=== PATIENT | male | born 1975 | race Two or more races ===

== ENCOUNTER 2017-01-05 12:17 | Emergency (ER) | payer SELFPAY ==
[2017-01-05] MEDS ORDERED: Ondansetron 4 MG/2 ML SDV IVPUSH ONE (12:51)
[2017-01-05] MEDS ORDERED: Ketorolac 30 MG/ML SDV IVPUSH ONE (12:51)
[2017-01-05] MEDS ORDERED: Morphine 2 MG/ML Syringe IVPUSH ONE (12:51)
[2017-01-05] MEDS ORDERED: Sodium Chloride 0.9% 1,000 ML IV ONE (12:51)
--- NOTE | 2017-01-05 13:09 | EDM.PDOC ---
ED HPI GI/ABDOMINAL - General Chief Complaint: Abdominal Pain Stated Complaint: STOMACH PAINS Time Seen by Provider: 01/05/17 12:58 Source of Information: Reports: Patient History Limitations: Reports: Language barrier - History of Present Illness INITIAL COMMENTS - FREE TEXT/NARRATIVE: History of present illness: [41-year-old male presenting with acute abdominal pain. Has a history of cholelithiasis and had planned to have surgery indicates the pain is increasingly worse despite opiate analgesia. Indicates that when he was evaluated previously they indicated the stones were concerning for obstruction.] Review of systems: As per history of present illness and below otherwise all systems reviewed and negative. Past medical history: As per history of present illness and as reviewed below otherwise noncontributory. Surgical history: As per history of present illness and as reviewed below otherwise noncontributory. Social history: No reported history of drug or alcohol abuse. Family history: As per history of present illness and as reviewed below otherwise noncontributory. Physical exam: HEENT: Atraumatic, normocephalic, pupils reactive, negative for conjunctival pallor or scleral icterus, mucous membranes moist, throat clear, neck supple, nontender, trachea midline. Lungs: Clear to auscultation, breath sounds equal bilaterally, chest nontender. Heart: S1S2, regular, negative for clicks, rubs, or JVD. Abdomen: Soft, nondistended, exquisite tenderness is specifically noted in her right upper quadrant. Negative for masses or hepatosplenomegaly. Negative for costovertebral tenderness. Pelvis: Stable nontender. Genitourinary: Deferred. Rectal: Deferred. Extremities: Atraumatic, negative for cords or calf pain. Neurovascular unremarkable. Neuro: Awake, alert, oriented. Cranial nerves II through XII unremarkable. Cerebellum unremarkable. Motor and sensory unremarkable throughout. Exam nonfocal. Ultrasound reflects presence of numerous gallstones without signs of obstruction. This was consistent with exam done at outside hospital so no significant change noted. Patient indicates pain did increase significantly after eating. Spoke with Dr. Soni in regards to patient's ultrasound results and his labs Dr. Soni indicated that continue with the conservative plan of following up on Saturday would be sufficient. Diagnostics: [BC, CMP, CT of abdomen with contrast] Therapeutics: [IV fluid, Zofran, Toradol, morphine] Impression: [Cholecystitis with cholelithiasis] Plan: [Refer to surgery] Definitive disposition and diagnosis as appropriate pending reevaluation and review of above. - Related Data Allergies/ADRs: Allergies Allergy/AdvReac Type Severity Reaction Status Date / Time No Known Allergies Allergy Verified 01/05/17 12:52 Home Meds: Home Meds traMADol Hcl/Acetaminophen [Ultracet Tablet] 37.5 mg PO Q4HR 01/05/17 [History] Past Medical History - Past Health History Medical/Surgical History: Denies Medical/Surgical History Social & Family History - Tobacco Use Smoking Status *Q: Never Smoker Second Hand Smoke Exposure: No - Caffeine Use Caffeine Use: Reports: Coffee - Alcohol Use Days Per Week of Alcohol Use: 1 Number of Drinks Per Day: 2 Total Drinks Per Week: 2 - Recreational Drug Use Recreational Drug Use: No ED ROS GENERAL - Review of Systems Review Of Systems: See Below (History of present illness) ED EXAM, GI/ABD - Physical Exam Exam: See Below (See history of present illness) Course - Vital Signs Last Recorded V/S: Last Vital Signs Temp 36.1 C 01/05/17 12:50 Pulse 87 01/05/17 12:50 Resp 18 01/05/17 12:50 BP 123/68 01/05/17 12:50 Pulse Ox 98 01/05/17 12:50 - Orders/Labs/Meds Orders: Active Orders 24 hr Category Date Time Status Gallbladder [Abdomen Ltd] [US] Stat Exams 01/05/17 13:14 Ordered Labs: Laboratory Tests 01/05/17 01/05/17 Range/Units 13:08 13:08 WBC 9.85 (4.0-11.0) K/uL RBC 6.72 H (4.50-5.90) M/uL Hgb 13.0 (13.0-17.0) g/dL Hct 42.6 (38.0-50.0) % MCV 63.4 L (80.0-98.0) fL MCH 19.3 L (27.0-32.0) pg MCHC 30.5 L (31.0-37.0) g/dL RDW Std Deviation 41.0 (28.0-62.0) fl RDW Coeff of Popeye 19 H (11.0-15.0) % Plt Count 209 (150-400) K/uL Neut % (Auto) 78.4 (48.0-80.0) % Lymph % (Auto) 14.3 L (16.0-40.0) % [place] % (Auto) 6.4 (0.0-15.0) % Eos % (Auto) 0.6 (0.0-7.0) % Baso % (Auto) 0.3 (0.0-1.5) % Neut # (Auto) 7.7 H (1.4-5.7) K/uL Lymph # (Auto) 1.4 (0.6-2.4) K/uL [place] # (Auto) 0.6 (0.0-0.8) K/uL Eos # (Auto) 0.1 (0.0-0.7) K/uL Baso # (Auto) 0.0 (0.0-0.1) K/uL Nucleated RBC % 0.0 /100WBC Nucleated RBCs # 0 K/uL Sodium 139 (136-146) mmol/L Potassium 3.6 (3.5-5.1) mmol/L Chloride 109 (98-110) mmol/L Carbon Dioxide 21 (21-31) mmol/L BUN 13 (6.0-23.0) mg/dL Creatinine 0.8 (0.6-1.5) mg/dL Est Cr Clr Drug Dosing 109.66 mL/min Estimated GFR (MDRD) > 60.0 ml/min Glucose 108 (60-110) mg/dL Calcium 8.9 (8.8-10.8) mg/dL Total Bilirubin 0.9 (0.1-1.5) mg/dL AST 23 (5-40) IU/L ALT 31 (8-54) IU/L Alkaline Phosphatase 99 (40-150) Total Protein 7.3 (6.0-8.0) g/dL Albumin 4.3 (3.5-5.0) g/dL Globulin 3.0 (2.0-3.5) g/dL Albumin/Globulin Ratio 1.4 (1.3-2.8) Meds: Medications Discontinued Medications Generic Name Dose Route Start Last Admin Trade Name Freq PRN Reason Stop Dose Admin Sodium Chloride 1,000 mls @ 999 mls/hr 01/05/17 12:51 01/05/17 13:11 Normal Saline IV 01/05/17 13:51 999 mls/hr STAT ONE Administration Ketorolac Tromethamine 30 mg 01/05/17 12:51 01/05/17 13:36 Toradol IVPUSH 01/05/17 12:52 30 mg ONETIME ONE Administration Morphine Sulfate 2 mg 01/05/17 12:51 01/05/17 13:38 Morphine IVPUSH 01/05/17 12:52 2 mg ONETIME ONE Administration Ondansetron HCl 8 mg 01/05/17 12:51 01/05/17 13:34 Zofran IVPUSH 01/05/17 12:52 8 mg ONETIME ONE Administration Departure - Departure Time of Disposition: 14:55 Disposition: Home, Self-Care 01 Condition: good Clinical Impression: Cholecystitis Cholelithiasis Qualifiers: Cholelithiasis location: gallbladder Cholecystitis presence: with cholecystitis Cholecystitis acuity: acute Biliary obstruction: without biliary obstruction Qualified Code(s): K80.00 - Calculus of gallbladder with acute cholecystitis without obstruction Forms: ED Department Discharge Additional Instructions: The following information is given to patients seen in the emergency department who are being discharged to home. This information is to outline your options for follow-up care. We provide all patients seen in our emergency department with a follow-up referral. The need for follow-up, as well as the timing and circumstances, are variable depending upon the specifics of your emergency department visit. If you don't have a primary care physician on staff, we will provide you with a referral. We always advise you to contact your personal physician following an emergency department visit to inform them of the circumstance of the visit and for follow-up with them and/or the need for any referrals to a consulting specialist. The emergency department will also refer you to a specialist when appropriate. This referral assures that you have the opportunity for follow-up care with a specialist. All of these measure are taken in an effort to provide you with optimal care, which includes your follow-up. Under all circumstances we always encourage you to contact your private physician who remains a resource for coordinating your care. When calling for follow-up care, please make the office aware that this follow-up is from your recent emergency room visit. If for any reason you are refused follow-up, please contact the [facility] Emergency Department at and asked to speak to the emergency department charge nurse. Decrease all fatty foods including all port from your diet Take medication as directed If necessary go to a clear liquid diet until seen and evaluated by a surgeon Followup Saturday with surgery Return to ED as needed as discussed [facility] Specialty Care - General Surgery Professional Building [address] [place] [address], [address] [place] [address] - My Orders Last 24 Hours: My Active Orders 01/05/17 13:14 Gallbladder [Abdomen Ltd] [US] Stat - Assessment/Plan Last 24 Hours: My Active Orders 01/05/17 13:14 Gallbladder [Abdomen Ltd] [US] Stat
[2017-01-05 13:42] LABS: CHLORIDE,CL 109 mmol/L (98-110); SODIUM,NA 139 mmol/L (136-146)
[2017-01-05 15:05] VITALS: BP 121/71
--- NOTE | 2017-01-07 10:42 | US ---
EXAM DATE: 01/05/17 PATIENT'S AGE: 41 Patient: FIDEL MENDOZA Facility: [place], [place] Site . Site : [id number] Study: US Abdomen [id number]/15/2017 2:18:29 PM Ordering Physician: Doctor Philip Final Report: INDICATION: Right upper quadrant pain. TECHNIQUE: Conventional two-dimensional grayscale ultrasound of the right upper quadrant. COMPARISON: None. FINDINGS: Stones are demonstrated in the gallbladder. Mild gallbladder wall thickening is noted along with some pericholecystic fluid. The patient is reportedly tender over the gallbladder. No biliary ductal dilation is evident. The common bile duct measures 3 mm. The liver is normal in size, shape and echogenicity. The pancreas is obscured by gas. The right kidney is unremarkable. The visualized portion of the abdominal aorta and inferior vena cava are negative. IMPRESSION: 1. Cholelithiasis and evidence of acute cholecystitis. 2. Pancreas obscured by gas. Dictated by Tate Sanchez MD @ Jan 05 2017 2:34PM (Electronic Signature) Report Signed by Proxy and Original Signed Document filed in the Medical Record. SANDOR
== END 2017-01-05 15:32 | disposition home or self-care (01) ==
LOC: MW.ED 12:17
DX: K80.00 Calculus of gallbladder with acute cholecystitis without obstruction (principal)
CPT/HCPCS: 36415; 76705; 80053; 85025; 96361; 96374; 96375; 99284; J1885; J2270; J2405; J7040

== ENCOUNTER 2017-01-21 07:48 | Day surgery (SDC) | payer SELFPAY ==
[~2017-01-21 07:48] MED LIST: Bupivacaine 0.5% 10 ML SDV ONE; Lactated Ringers 1,000 ML IV SCH; ceFAZolin 1 GM Vial ONE; cefOXitin 2 GM in Premix Bag 1 BAG IV ONE
[2017-01-21] MEDS ORDERED: Midazolam 1 MG/ML 2 ML SDV ONE (08:38)
[2017-01-21] MEDS ORDERED: Succinylcholine/Normal Saline 200 MG/10 ML Syringe ONE (08:38)
[2017-01-21] MEDS ORDERED: Lidocaine 2% 5 ML SDV ONE (08:38)
[2017-01-21] MEDS ORDERED: fentaNYL 100 MCG/2 ML SDV ONE ×2 (08:38→11:56)
[2017-01-21] MEDS ORDERED: Propofol 200 MG/20 ML SDV ONE (08:38)
[2017-01-21] MEDS ORDERED: Rocuronium 10 MG/ML 10 ML Syringe ONE (08:38)
[2017-01-21] MEDS ORDERED: Scopolamine 1.5 MG Transdermal Patch TRDERM PRN (09:30)
--- NOTE | 2017-01-21 09:32 | PCM.PREANE ---
Preanesthetic Assessment - Anesthesia/Transfusion/Family Hx Anesthesia History: No Prior Anesthesia Family History of Anesthesia Reaction: No Transfusion History: No Prior Transfusion(s) - Review of Systems General: No Symptoms Pulmonary: No Symptoms Cardiovascular: No Symptoms Gastrointestinal: Abdominal pain Neurological: No Symptoms Other: Reports: None - Physical Assessment O2 Sat by Pulse Oximetry: 99 Respiratory Rate: 16 Vital Signs: Last Vital Signs Temp 36.7 C 01/21/17 08:12 Pulse 65 01/21/17 08:12 Resp 16 01/21/17 08:12 BP 128/78 01/21/17 08:12 Pulse Ox 99 01/21/17 08:12 Height: 1.68 m Weight: 86.636 kg ASA Class: 2 Mental Status: Alert & Oriented x3 Airway Class: Mallampati = 2 Dentition: Reports: Normal Dentition Thyro-Mental Finger Breadths: 3 Mouth Opening Finger Breadths: 3 ROM/Head Extension: Full Lungs: Clear to auscultation, Normal respiratory effort Cardiovascular: Regular Rate, Regular Rhythm - Allergies Allergies/Adverse Reactions: Allergies Allergy/AdvReac Type Severity Reaction Status Date / Time No Known Allergies Allergy Verified 01/05/17 12:52 - Blood Blood Available: No - Anesthesia Plan Pre-Op Medication Ordered: None - Acknowledgements Anesthesia Type Planned: General Anesthesia Pt an Appropriate Candidate for the Planned Anesthesia: Yes Alternatives and Risks of Anesthesia Discussed w Pt/Guardian: Yes Pt/Guardian Understands and Agrees with Anesthesia Plan: Yes PreAnesthesia Questionnaire - Past Health History Medical/Surgical History: Denies Medical/Surgical History Gastrointestinal History: Reports: Cholelithiasis Endocrine/Metabolic History: Reports: Obesity/BMI 30+ - Past Surgical History Head Surgeries/Procedures: Reports: None - SUBSTANCE USE Smoking Status *Q: Current Some Day Smoker Tobacco Use Within Last Twelve Months: Cigarettes Second Hand Smoke Exposure: No Days Per Week of Alcohol Use: 1 Number of Drinks Per Day: 2 Total Drinks Per Week: 2 Recreational Drug Use History: No - HOME MEDS Home Medications: Home Meds traMADol Hcl/Acetaminophen [Ultracet Tablet] 37.5 mg PO Q4HR PRN 01/05/17 [ History] - CURRENT (IN HOUSE) MEDS Current Meds: Current Medications Lactated Ringer's (Ringers, Lactated) 1,000 mls @ 125 mls/hr IV ASDIRECTED SAHIL Scopolamine (Transderm-Scop) 1.5 mg TRDERM Q72H PRN PRN Reason: Nausea Discontinued Medications Bupivacaine HCl (Sensorcaine-Mpf 0.5%) Confirm Administered Dose 30 ml .ROUTE .STK-MED ONE Stop: 01/21/17 06:59 Cefazolin Sodium (Ancef) Confirm Administered Dose 1 gm .ROUTE .STK-MED ONE Stop: 01/21/17 06:59 Fentanyl (Sublimaze) Confirm Administered Dose 100 mcg .ROUTE .STK-MED ONE Stop: 01/21/17 08:39 Cefoxitin Sodium 2 gm/ Premix 50 mls @ 100 mls/hr IV ONETIME ONE Stop: 01/21/17 06:29 Lidocaine (Xylocaine-Mpf 2%) Confirm Administered Dose 5 ml .ROUTE .STK-MED ONE Stop: 01/21/17 08:39 Midazolam HCl (Versed 1 Mg/Ml) Confirm Administered Dose 2 mg .ROUTE .STK-MED ONE Stop: 01/21/17 08:39 Propofol (Diprivan 20 Ml) Confirm Administered Dose 200 mg .ROUTE .STK-MED ONE Stop: 01/21/17 08:39 Rocuronium Davis (Zemuron) Confirm Administered Dose 100 mg .ROUTE .STK-MED ONE Stop: 01/21/17 08:39 Succinylcholine Chloride (Succinylcholine In Ns Pf) Confirm Administered Dose 200 mg .ROUTE .STK-MED ONE Stop: 01/21/17 08:39
[2017-01-21] MEDS ORDERED: HYDROmorphone 2 MG/ML Syringe ONE (11:08)
[2017-01-21] MEDS ORDERED: ePHEDrine 50 MG/ML SDV ONE (11:26)
[2017-01-21] MEDS ORDERED: fentaNYL 100 MCG/2 ML SDV IVPUSH PRN (11:45)
[2017-01-21] MEDS ORDERED: Ketorolac 30 MG/ML SDV ONE (11:48)
[2017-01-21] MEDS ORDERED: Ondansetron 4 MG/2 ML SDV ONE (11:48)
[2017-01-21] MEDS ORDERED: Neostigmine Methylsulfate 1 MG/ML 5 ML Syringe ONE (11:48)
[2017-01-21] MEDS ORDERED: Acetaminophen/HYDROcodone 325-5 MG Tab PO PRN (12:09)
[2017-01-21] MEDS ORDERED: Morphine 10 MG/ML Syringe IVPUSH PRN (12:09)
[2017-01-21] MEDS ORDERED: Ondansetron 4 MG/2 ML SDV IVPUSH PRN (12:09)
--- NOTE | 2017-01-21 12:12 | PCM.OPNOTE ---
- General Post-Op/Procedure Note Date of Surgery/Procedure: 01/21/17 Operative Procedure(s): Laparoscopic cholecystectomy Pre Op Diagnosis: Symptomatic cholelithiasis Post-Op Diagnosis: Same Anesthesia Technique: General ET tube (ASA II) Primary Surgeon: Celestino Soni Fluid Replacement, Intraop: 1,900 Output, Urine Amount: 350 EBL in mLs: 10 Condition: Good Free Text/Narrative:: Dictation [id number]
[2017-01-21] MEDS ORDERED: Lactated Ringers 1,000 ML IV SCH (12:15)
--- NOTE | 2017-01-21 12:53 | PCM.POSTAN ---
POST ANESTHESIA ASSESSMENT - MENTAL STATUS Mental Status: alert - RESPIRATORY Respiratory Status: respiratory rate WNL, airway patent, O2 saturation stable - CARDIOVASCULAR CV Status: pulse rate WNL, blood pressure stable - GASTROINTESTINAL GI Status: no symptoms - PAIN Pain Score: 0 - POST OP HYDRATION Hydration Status: adequate & stable - OBSERVATIONS Free Text/Narrative:: no anesthesia problems
--- NOTE | 2017-01-21 14:29 | PCM48HPAN ---
Post Anesthesia Note - EVALUATION WITHIN 48HRS OF ANESTHETIC Vital Signs in Normal Range: Yes Patient Participated in Evaluation: Yes Respiratory Function Stable: Yes Airway Patent: Yes Cardiovascular Function Stable: Yes Hydration Status Stable: Yes Pain Control Satisfactory: Yes Nausea and Vomiting Control Satisfactory: Yes Mental Status Recovered: Yes
[2017-01-21 14:46] VITALS: BP 124/70
--- NOTE | 2017-01-21 20:08 | OR ---
SURGEON: Celestino Soni M.D. DATE OF PROCEDURE: 01/21/2017 OPERATION PERFORMED: Laparoscopic cholecystectomy. ANESTHESIA: General endotracheal. ASA CLASSIFICATION: II. PREOPERATIVE DIAGNOSIS: Symptomatic cholelithiasis. POSTOPERATIVE DIAGNOSIS: Symptomatic cholelithiasis. ESTIMATED BLOOD LOSS: 10 mL. INTRAOPERATIVE FLUID REPLACEMENT: 1900 mL of crystalloid. INTRAOPERATIVE URINARY OUTPUT: 350 mL. DESCRIPTION OF PROCEDURE: The patient was taken to the operating room and placed on the operating table in the supine position. Time-out was called for appropriate identification of patient and procedure. Thigh-high TEDs and sequential compression boots were placed. Following satisfactory attainment of general endotracheal anesthesia, a Rodas catheter was placed in the patient's urinary bladder. The abdomen was prepped with DuraPrep solution, and sterile drapes were applied. The skin just below the umbilicus was infiltrated with 0.5% Marcaine solution. The skin incision was made and deepened through the subcutaneous tissue. The Veress needle was introduced into the peritoneal cavity. The saline drop test was positive. Carbon dioxide pneumoperitoneum was established with the release set at 13 cm of water. Once we had a satisfactory pneumoperitoneum, 5 mm camera and port were placed through the infraumbilical incision. The patient was now positioned with his feet down and rolled to the left. Under camera vision, 12 mm subxiphoid, 5 mm midclavicular, and 5 mm anterior axillary ports were placed. Each incision was preemptively infiltrated with 0.5% Marcaine solution. The gallbladder was then grasped, and the cholecystohepatic triangle was dissected free identifying the cystic duct and cystic artery. A good critical view was obtained of each structure. Once they had been appropriately mobilized, they were individually hemoclipped, and each structure divided with the laparoscopic Metzenbaum scissor. The gallbladder was then dissected away from its bed using electrocautery. Care was taken not to spill any bile or stones. Once the gallbladder was completely mobilized and dissected away from the bed, it was placed in an Endopouch. The bed of the gallbladder was inspected for hemostasis, and small bleeding sites were electrocoagulated. The bed of the gallbladder was then packed with EndoAvitene and Surgicel. The abdomen was irrigated with several 100 mL of saline solution. All of this fluid was aspirated. The right hemidiaphragm was then irrigated with 250 mL of saline with 20 mL of 0.5% Marcaine solution. That fluid was left in place. The patient was now positioned in a neutral position. The Endopouch containing the gallbladder was then removed through the subxiphoid port under camera vision. Once that was accomplished and again under camera vision, the 5 mm midclavicular, and 5 mm anterior axillary ports were removed. Finally, the infraumbilical camera and port were removed. The incisions were inspected for hemostasis. No bleeding was noted. The infraumbilical and subxiphoid incisions were closed in 2 layers approximating the subcutaneous tissue with 3-0 Polysorb and the skin with subcuticular 4-0 Monocryl. The midclavicular and anterior axillary incisions were closed with subcuticular 4-0 Monocryl. All incisions were Steri-Stripped and dressed with sterile Tegaderm pads. Sponge, needle, and instrument counts were all correct. The patient tolerated the procedure well. The Rodas catheter was removed prior to emergence from anesthesia. Following emergence from anesthesia and extubation, the patient was taken to the recovery room in stable condition. AMBERLY CONTRERAS /[id number]
== END 2017-01-21 14:32 | disposition home or self-care (01) ==
LOC: MW.SDS 07:48
PROVIDERS: ATTEND Surgery
PROC: 0FT44ZZ Resection of Gallbladder, Percutaneous Endoscopic Approach (ICD-10-PCS; principal; 2017-01-21)
DX: K80.10 Calculus of gallbladder with chronic cholecystitis without obstruction (principal); E66.9 Obesity, unspecified; F17.210 Nicotine dependence, cigarettes, uncomplicated; Z68.32 Body mass index [BMI] 32.0-32.9, adult
CPT/HCPCS: 47562; 88304; A9270; J1170; J1885; J2250; J2405; J3010; 00790; J0690; J2704